=== PATIENT | male | born 1935 | race Caucasian/White ===

== ENCOUNTER 2016-09-08 12:02 | Inpatient (IN) | payer MEDICARE ==
--- NOTE | ~2016-09-08 | OP ---
Record Of Operation [facility] [address] [place]. [address] NAME: BRIAN RATLIFF : 36 STATUS : ADM IN PAT#: [id number] AGE: 80 ADM/REG DATE : 09/08/16 MR#: [id number] REPORT SERV DATE: 09/09/16 DICTATED BY: MEHRAN VARGAS DATE: 09/09/16 REPORT STATUS : Draft TRANSCRIBED BY: MODL DATE: 09/09/16 DATE OF PROCEDURE: 09/09/2016 CARDIAC CATHETERIZATION REPORT INDICATION FOR THIS PROCEDURE: Progressive angina and syncope. PROCEDURE IN DETAIL: The patient was prepped and draped in usual sterile fashion. Moderate IV sedation was administered. Adequate anesthesia was obtained over the right femoral vessels using lidocaine infiltration. Using the Seldinger technique, a 6-Bulgarian sheath was placed in the right femoral artery. A 6 FL4 coronary catheter was advanced in the left coronary ostium. Left coronary injections were performed in multiple views. Left groin catheter was then exchanged for a 6 FR4 coronary catheter which was used to inject the cachil dehe right coronary artery and the saphenous vein graft. Right coronary catheter was subsequently exchanged for a 6-Bulgarian multipurpose catheter which was used to perform additional saphenous vein graft injections. The multipurpose catheter was exchanged for a 6 Bulgarian pigtail catheter, which was advanced in the left ventricular cavity. Pressures were measured across the aortic valve and left ventricular angiogram was obtained in the ADAMS projection. The pigtail catheter was removed over a guidewire and sheath was left in place. There were no apparent complications. TOTAL CONTRAST USED: 105 mL. TOTAL RADIATION EXPOSURE: 396 mGy. ESTIMATED BLOOD LOSS: No significant blood loss occurred. RESULTS: 1. Pressures: The left ventricular end-diastolic pressure was 15 mmHg. No gradient was present across the aortic valve. 2. Left ventricular angiogram: The left ventricle contracted normally with estimated ejection fraction of 60%. 3. Coronary arteriograms: The left main coronary artery is normal. The left anterior descending coronary artery has a 70% mid vessel lesion. The left circumflex coronary artery has an 80% ostial lesion and there is a 95% proximal stenosis of the previously stented ramus intermedius branch. The right coronary artery is a dominant vessel and is totally occluded proximally. 4. Grafts: The previously stented saphenous vein graft to the right coronary artery is occluded. IMPRESSION: 1. Three-vessel coronary artery disease. 2. High-grade stenoses of ostium of the left circumflex coronary artery and proximal ramus intermedius branch. 3. Moderate disease in LAD. 4. Chronic total occlusion of right coronary artery which fills via septal collaterals Record Of Operation [facility] [facility] [id number] [place]. [address] NAME: BRIAN RATLIFF : 36 STATUS : ADM IN PAT#: [id number] AGE: 80 ADM/REG DATE : 09/08/16 MR#: [id number] REPORT SERV DATE: 09/09/16 DICTATED BY: MEHRAN VARGAS DATE: 09/09/16 REPORT STATUS : Draft TRANSCRIBED BY: RUBEN DATE: 09/09/16 from the LAD. PLAN: Staged angioplasty of the left circumflex coronary artery and ramus intermedius branch. ESVIN/RUBEN Mehran Vargas M.D., Neil / [id number] CC: Mehran Vargas M.D., ClarissaCVernon Martin M.D.
--- NOTE | ~2016-09-08 | DS ---
Discharge Summary [facility] [address] [place]. [address] NAME: BRIAN RATLIFF : 36 STATUS : DIS IN PAT#: [id number] AGE: 80 ADM/REG DATE : 09/08/16 MR#: [id number] REPORT SERV DATE: 09/20/16 DICTATED BY: MEHRAN VARGAS DATE: 09/19/16 REPORT STATUS : Draft TRANSCRIBED BY: RUBEN DATE: 09/19/16 Data Collection from hospitalization DISCHARGE DIAGNOSES: 1. Syncope. 2. Coronary artery disease, status post percutaneous coronary intervention to the left circumflex ramus intermedius. 3. Chest pain. 4. Shortness of breath. 5. Hypertension. 6. Anxiety disorder. CONSULTATIONS: None. PROCEDURES PERFORMED: 1. Cardiac catheterization on 09/09/2016. 2. PTCA on 09/11/2016. 3. Carotid blood flow study on 09/10/2016. MEDICATIONS: Xanax 1 mg twice a day and 1 mg as needed, Abilify 5 mg daily, aspirin 162 mg daily, vitamin B one tablet at bedtime, Coreg 6.25 mg twice a day, Cymbalta 60 mg twice a day, Proscar 5 mg daily, lecithin 400 mg at bedtime, Effient 10 mg daily, Lyrica 75 mg twice a day, Altace 5 mg daily, Restoril 30 mg at bedtime, and Bengay one application topically daily as needed. CONDITION AT DISCHARGE: Stable. DISPOSITION: The patient was discharged home on a low-sodium, low-cholesterol, cardiac diet with activities as instructed. He would follow up with me on 09/26/2016. HOSPITAL COURSE: This is a 80-year-old man who has a significant history of coronary artery disease, who had some been increasing dyspnea on exertion recently as well as intermittent chest discomfort. He had a nuclear stress test done the week prior to this admission, which was unremarkable and was actually coming back to my office for followup on the morning of this admission. He had a syncopal episode in our office after stepping off the scale. He had walked from the waiting room into the triage area and said the last thing he remembered was the nurse telling him his weight. After stepping off the scale, he began to fall and he was caught and placed in a wheelchair. He was very pale and regained consciousness quickly, but seemed a little disoriented. He was brought to the emergency department for further evaluation. He did have an episode of substernal chest pain here in the hospital, which radiated to his left arm. Currently, he was stable with no acute changes on his EKG and initial troponin was negative. He was admitted to the hospital for further evaluation and treatment. Upon admission, EKG showed sinus rhythm with nonspecific ST-T changes and borderline voltage for left ventricular hypertrophy, but was otherwise unremarkable. We would obtain serial cardiac enzymes. Home medications were continued. A carotid ultrasound was requested. We would consider possible cardiac catheterization to evaluate coronary anatomy due to Discharge Summary [facility] [id number] [facility] [place]. [address] NAME: BRIAN RATLIFF : 37 STATUS : DIS IN PAT#: [id number] AGE: 80 ADM/REG DATE : 09/08/16 MR#: [id number] REPORT SERV DATE: 09/20/16 DICTATED BY: MEHRAN VARGAS DATE: 09/19/16 REPORT STATUS : Draft TRANSCRIBED BY: RUBEN DATE: 09/19/16 worsening anginal symptoms despite negative nuclear scan. The following day, he was taken to the cardiac specialist employee labor relations where he underwent the above-mentioned procedure. He tolerated this well, and there were no complications. It was felt that the patient would need to undergo PTCA. On 09/10/2016, a carotid blood flow study was performed. He was in no distress. His lungs were clear. He had been found to have high-grade lesions of the left circumflex and ramus intermedius as well as moderate LAD lesions. On 09/11/2016, he was taken back to the cardiac specialist employee labor relations where he underwent the above-mentioned procedure. He tolerated this well, and there were no complications. Discharge planning was performed. On 09/12/2016, he has had an episode of chest pain during the night, but no discomfort. That morning, he reported that his shortness of breath was much improved since stenting. His lungs were clear. He had no edema. The cath site was clean, dry, and intact. Discharge instructions were given. Due to his improved and stable condition, he was discharged home with the above-stated instructions. Information collected by: Sarah Christie I submit the above information as my discharge summary. LASHAUN/MODL Mehran Vargas M.D., Neil / [id number] CC: Mehran Vargas M.D., Neil Martin M.D.
--- NOTE | ~2016-09-08 | OP ---
Record Of Operation [facility] [address] [place]. [address] NAME: BRIAN RATLIFF : 36 STATUS : ADM IN PAT#: [id number] AGE: 80 ADM/REG DATE : 09/08/16 MR#: [id number] REPORT SERV DATE: 09/11/16 DICTATED BY: MEHRAN VARGAS DATE: 09/11/16 REPORT STATUS : Draft TRANSCRIBED BY: MODL DATE: 09/11/16 DATE OF PROCEDURE: 09/11/2016 PTCA REPORT INDICATION FOR THIS PROCEDURE: Unstable angina with high-grade stenosis of ungrafted proximal left circumflex coronary artery and ramus intermedius branch. DESCRIPTION OF PROCEDURE: The patient was prepped and draped in the usual sterile fashion. Moderate IV sedation was administered. Adequate anesthesia was obtained over the right femoral vessels using lidocaine infiltration. Using the Seldinger technique, an 8-British sheath was placed in the right femoral artery. An 8 VL 3.5 coronary guiding catheter was advanced in the left coronary ostium. Left coronary artery injections confirmed the presence of an 80% ostial lesion of the left circumflex coronary artery and a 95% proximal stenosis of the previously stented ramus intermedius branch. A 0.014 Graphix guidewire was passed into the distal left circumflex coronary artery and a 0.014 Graphix guidewire was passed into the distal ramus branch. The ostium of the left circumflex coronary artery was then dilated with a 3.0/10 Cutting balloon at up to 15 atmospheres of pressure for 30 seconds in duration. The proximal ramus intermedius branch was then dilated with a 2.0/12 Emerge balloon at up to 15 atmospheres of pressure for 15 seconds in duration. A 3.0/16 Synergy stent was then deployed in the ostium of the left circumflex coronary artery at up to 18 atmospheres of pressure for 15 seconds in duration. A 0.014 Graphix guidewire was then passed through the stent struts in the proximal left circumflex coronary artery into the adjacent ramus intermedius branch. The ramus branch was again dilated through the stent strut using the 2.0/12 Emerge balloon at up to 18 atmospheres of pressure for 15 seconds in duration. A 2.25/12 Synergy stent was then deployed through the stent struts in the left circumflex coronary artery into the proximal ramus branch. The stent was inflated up to 15 atmospheres of pressure for 15 seconds in duration. Following removal of the balloon and guidewire, final left coronary artery injection showed 0% residual stenosis at the site of stent implantation with GALINDO grade 3 distal flow in both the ramus branch and the left circumflex coronary artery. The guiding catheter was removed. The sheath was left in place. No apparent complications. TOTAL CONTRAST USED: 150 mL. TOTAL RADIATION EXPOSURE: 511 mGy. ESTIMATED BLOOD LOSS: No significant blood loss occurred. IMPRESSION: 1. Successful Cutting balloon percutaneous transluminal coronary angioplasty and placement of drug-eluting stent in the ostium of left circumflex coronary artery. 2. Successful percutaneous transluminal coronary angioplasty and placement of drug-eluting stent in the proximal ramus intermedius branch. Record Of [address] [address] NAME: BRIAN RATLIFF : 36 STATUS : ADM IN [facility]#: [id number] AGE: 80 ADM/REG DATE : 09/08/16 MR#: [id number] REPORT SERV DATE: 09/11/16 DICTATED BY: MEHRAN VARGAS DATE: 09/11/16 REPORT STATUS : Draft TRANSCRIBED BY: RUBEN DATE: 09/11/16 ESVIN/RUBEN Mehran Vargas M.D., Neil / [id number] CC: Mehran Vargas M.D., Niel Martin M.D.
--- NOTE | ~2016-09-08 | HP ---
History And Physical [place] [address] [facility] [place]. [address] NAME: BRIAN RATLIFF : 37 STATUS : ADM IN [facility]#: [id number] AGE: 80 ADM/REG DATE : 09/08/16 MR#: [id number] REPORT SERV DATE: 09/08/16 DICTATED BY: JOCELIN HO DATE: 09/08/16 REPORT STATUS : Draft TRANSCRIBED BY: MODL DATE: 09/08/16 DATE OF ADMISSION: 09/08/2016 HISTORY OF PRESENT ILLNESS: The patient is a pleasant 80-year-old white male with a significant history of coronary artery disease, who has had some increasing dyspnea on exertion recently as well as intermittent chest discomfort. He had a nuclear stress test done last week, which was unremarkable and was actually coming back to my office for followup this morning. He had a syncopal episode in our office just after stepping off the scales. He had walked from the waiting room into the triage area and states that the last thing he remembers was the nurse telling him his weight. The patient's and my MA report that after stepping off the scales, he began falling and they caught him and placed him in a wheelchair. He was very pale and regained consciousness quickly, but seemed a little disoriented. He was brought to the emergency department for further evaluation. The patient did have an episode of substernal chest pain here in the hospital this afternoon, which radiated to his left arm. Currently, he is stable with no acute changes on his EKG and initial troponin was negative. PAST MEDICAL HISTORY: Significant for coronary artery disease status post remote bypass surgery and subsequent stenting as well as essential hypertension, COPD, and anxiety disorder. The patient's last cardiac catheterization was done on 06/20/2013, which showed a patent pre-existing stent in the proximal to mid ramus intermedius branch with a 30% ostial lesion and proximal to this stent. There was also a patent stented segment of the saphenous vein graft to the posterior descending artery. The LAD had luminal irregularities, but no obstructive disease. The left ventricular ejection fraction was 60% at that time, and the right and left renal arteries were patent as well. SOCIAL HISTORY: The patient is . He does not smoke. He is currently grieving the of his son, who within the last two weeks. FAMILY HISTORY: Noncontributory. REVIEW OF SYSTEMS: The patient denies nausea, vomiting, diarrhea, or dysuria. He complains of worsening dyspnea on exertion as well as intermittent chest pain, although the pain does not seem to be necessarily exertional. He describes some fairly focal chest pain in the left lower anterior chest. This is worse when he bends over to tie his shoes. However, he also has some substernal chest pressure and pain that radiates across his chest and sometimes to the left arm that feels more similar to his previous angina. The patient complains of fatigue and frequent lightheadedness upon standing, but this is his first actual syncopal episode. He denies any recent fever, chills, cough, wheeze, or sputum production. PHYSICAL EXAMINATION: VITAL SIGNS: Blood pressure is 154/72, heart rate 68 and regular, respirations 14 and unlabored. The patient is afebrile. GENERAL APPEARANCE: The patient is a well-developed and well-nourished white male, in no distress. History And Physical [address] [address] NAME: BRIAN RATLIFF : 37 STATUS : ADM IN [facility]#: [id number] AGE: 80 ADM/REG DATE : 09/08/16 MR#: [id number] REPORT SERV DATE: 09/08/16 DICTATED BY: JOCELIN HO DATE: 09/08/16 REPORT STATUS : Draft TRANSCRIBED BY: RUBEN DATE: 09/08/16 HEENT: Unremarkable. NECK: Shows no jugular venous distention with good carotid upstroke. CHEST: Clear to auscultation bilaterally. CARDIOVASCULAR: PMI is nondisplaced. S1 is normal. S2 is narrowly split. No gallop is present. ABDOMEN: Soft and nontender with normal bowel sounds. EXTREMITIES: Showed no cyanosis, clubbing, or edema. SKIN: Warm and dry with no pallor or icterus. NEURO/PSYCH: The patient is alert and oriented x3 with appropriate affect. LABORATORY AND DIAGNOSTIC DATA: EKG shows sinus rhythm with nonspecific ST-T changes and borderline voltage for LVH, but is otherwise unremarkable. Chest x-ray showed no acute process. Chemistry profile shows a sodium of 142, potassium 4.7, BUN 18, creatinine 1.2, magnesium 2.4. Troponin was negative at less than 0.02. CBC was unremarkable with a white count of 8.9, hemoglobin 14.3, hematocrit 42.3, and platelet count 166. Nuclear stress test done three days ago on 09/05/2016 showed no reversible ischemia. There was some inferior wall thinning and hypokinesis consistent with partial-thickness scar. The left ventricular ejection fraction was 60%. IMPRESSION: 1. Syncope. 2. Chest pain and dyspnea on exertion that are concerning for possible progressive angina despite recent negative nuclear scan. 3. Coronary artery disease. 4. Essential hypertension. 5. Grief related to recent loss of a child. 6. Fibromyalgia syndrome. 7. History of anxiety disorder. PLAN: 1. We will admit the patient for observation and do serial cardiac enzymes. Continue home medications at this time. 2. Check carotid ultrasound in the morning. 3. Consider possible cardiac catheterization to evaluate coronary anatomy due to worsening anginal symptoms, despite negative nuclear scan. EBB/MODL Jocelin Ho NP / [id number] CC: Mehran Vargas M.D., F.A.C.C. History And Physical [address] [address] NAME: BRIAN RATLFIF : 37 STATUS : ADM IN [facility]#: [id number] AGE: 80 ADM/REG DATE : 09/08/16 MR#: [id number] REPORT SERV DATE: 09/08/16 DICTATED BY: JOCELIN HO DATE: 09/08/16 REPORT STATUS : Draft TRANSCRIBED BY: MODL DATE: 09/08/16 Emir Martin M.D.
[2016-09-08 11:31] LABS: CALCIUM, SERUM 8.6 MG/DL (8.5-10.4); CHLORIDE, SERUM 111 MMOL/L (96-112); CO2 (CARBON DIOXIDE) 24 MMOL/L (24-34); GFR AFRICAN AMERICAN 66 ML/MIN (>=60); GFR NON AFRICAN AMERICAN 57 ML/MIN (>=60); SODIUM, SERUM 142 MMOL/L (135-148); TROPONIN I <0.02 NG/ML (<0.05)
[2016-09-08 11:32] LABS: BUN (BLOOD UREA NITROGEN) 18 MG/DL (6-23); GLUCOSE, SERUM 123 MG/DL (60-99); POTASSIUM, SERUM 4.7 MMOL/L (3.5-5.3)
[~2016-09-08 12:02] MED LIST: ABILIFY15 PO; ALTA2.5 PO; COREG3 PO; CYMBALTA60 PO; EFFIENT10 PO; FLONASE NAS; HALF81 PO; LIPITOR20 PO; RESTORIL30 MG PO; XANAX1 MG PO; ZESTORETIC1 TAB PO
[2016-09-08 12:50] LABS: BASOPHILS 0.2 %; BASOPHILS ABSOLUTE 0.02 10/3/uL (0.0-0.16); EOSINOPHILS ABSOLUTE 0.18 10/3/uL (0.0-0.53); ER CBC TAT 0 Hrs 03 Mins; HEMATOCRIT 42.3 % (40.0-51.0); HEMOGLOBIN 14.3 g/dL (13.6-17.8); IMMATURE GRANULOCYTES 0.2 %; IMMATURE GRANULOCYTES ABSOLUTE 0.02 10/3/uL (0.0-0.11); LYMPHOCYTES 29.4 %; LYMPHOCYTES ABSOLUTE 2.62 10/3/uL (0.67-4.30); MEAN CORPUS HGB CONC 33.8 g/dL (32.0-36.0); MEAN CORPUSCULAR HEMOGLOB 31.2 pg (26.0-34.0); MEAN PLATELET VOLUME 10.5 fL (9.2-13.0); MONOCYTES 8.7 %; MONOCYTES ABSOLUTE 0.77 10/3/uL (0.21-1.20); NEUTROPHILS 59.5 %; NEUTROPHILS ABSOLUTE 5.29 10/3/uL (2.02-8.40); PLATELET COUNT 166 10/3/uL (150-400); RBC DISTRIBUTION WIDTH 14.5 % (12.0-16.0); RED CELL COUNT 4.58 10/6/uL (4.7-6.1); WHITE BLOOD CELLS 8.9 10/3/uL (4.5-10.5)
[2016-09-08 12:51] LABS: MANUAL DIFF NO %; MEAN CORPUSCULAR VOLUME 92.4 fL (80-100)
[2016-09-08 13:01] LABS: INTERNATIONAL NORMAL RATI 1.2 UNITS (-); PARTIAL THROMBO TIME 27.2 SEC (22.5-37.2); PROTIME (NOT ORD) 15.1 SEC (12.0-14.5)
[2016-09-08] MEDS ORDERED: RESTORIL30 MG PO (14:09)
[2016-09-08] MEDS ORDERED: COREG6 PO (14:09)
[2016-09-08] MEDS ORDERED: ABILIFY5 PO (14:10)
[2016-09-08] MEDS ORDERED: CYMBALTA60 PO (14:10)
[2016-09-08] MEDS ORDERED: EFFIENT10 PO (14:11)
[2016-09-08] MEDS ORDERED: XANAX1 MG PO ×2 (14:11)
[2016-09-08] MEDS ORDERED: ASAB PO (14:12)
[2016-09-08] MEDS ORDERED: ALTA5 PO (14:12)
[2016-09-08] MEDS ORDERED: VITAMIN B PO (14:13)
[2016-09-08] MEDS ORDERED: PROSCAR5 PO (14:13)
[2016-09-08] MEDS ORDERED: LYRICA75 PO (14:13)
[2016-09-08] MEDS ORDERED: LECITHIN518 MG PO (14:14)
[2016-09-08] MEDS ORDERED: BENGAY TOP (14:15)
[2016-09-08 18:51] LABS: HEMATOCRIT 40.4 % (40.0-51.0); HEMOGLOBIN 13.7 g/dL (13.6-17.8); MEAN CORPUS HGB CONC 33.9 g/dL (32.0-36.0); MEAN CORPUSCULAR HEMOGLOB 31.5 pg (26.0-34.0); MEAN CORPUSCULAR VOLUME 92.9 fL (80-100); MEAN PLATELET VOLUME 10.4 fL (9.2-13.0); PLATELET COUNT 151 10/3/uL (150-400); RBC DISTRIBUTION WIDTH 14.4 % (12.0-16.0); RED CELL COUNT 4.35 10/6/uL (4.7-6.1); WHITE BLOOD CELLS 7.1 10/3/uL (4.5-10.5)
[2016-09-08 18:52] LABS: MANUAL DIFF YES %
[2016-09-08 19:15] LABS: BASOPHILS 2 %; BASOPHILS ABSOLUTE (CALC) 0.14 10/3/uL (0.0-0.16); EOSINOPHILS 2 %; EOSINOPHILS ABSOLUTE (CALC) 0.14 10/3/uL (0.0-0.53); LYMPHOCYTES 24 %; MONOCYTES 4 %; MONOCYTES ABSOLUTE (CALC) 0.28 10/3/uL (0.21-1.20); NEUTROPHILS ABSOLUTE (CALC) 4.83 10/3/uL (2.02-8.40); PLATELET ESTIMATE ADQ (ADEQUATE); SEGMENTED NEUTROPHIL (0) 68 %; TOTAL NUCLEATED CELLS 100
[2016-09-08 19:16] LABS: GIANT PLATELET RARE
[2016-09-08 20:17] LABS: CK-MB 2.7 NG/ML; CPK 220 U/L (0-200)
[2016-09-09 01:20] LABS: CK-MB 1.5 NG/ML; CPK 138 U/L (0-200)
[2016-09-09 04:56] LABS: BUN (BLOOD UREA NITROGEN) 15 MG/DL (6-23); CALCIUM, SERUM 7.9 MG/DL (8.5-10.4); CHLORIDE, SERUM 111 MMOL/L (96-112); CO2 (CARBON DIOXIDE) 26 MMOL/L (24-34); CREATININE 1.02 MG/DL (0.70-1.30); GFR AFRICAN AMERICAN 81 ML/MIN (>=60); GFR NON AFRICAN AMERICAN 70 ML/MIN (>=60); GLUCOSE, SERUM 108 MG/DL (60-99); SODIUM, SERUM 145 MMOL/L (135-148)
[2016-09-09 09:24] LABS: TROPONIN I <0.02 NG/ML (<0.05)
[2016-09-09 10:28] LABS: CHOL/HDL RATIO(NOT ORDER) 4.5 (0-5); CHOLESTEROL 190 MG/DL (< 200); HDL CHOLESTEROL 42 MG/DL (> 39); LDL CHOLESTEROL 107 MG/DL (< 130); NON-HDL CHOLESTEROL 148 MG/DL (< 160)
[2016-09-09 10:32] LABS: TRIGLYCERIDE 208 MG/DL (< 150)
[2016-09-09 10:52] LABS: INTERNATIONAL NORMAL RATI 1.1 UNITS (-); PROTIME (NOT ORD) 13.7 SEC (12.0-14.5)
[2016-09-11 04:19] LABS: HEMATOCRIT 41.8 % (40.0-51.0); HEMOGLOBIN 14.2 g/dL (13.6-17.8); MEAN CORPUSCULAR HEMOGLOB 31.2 pg (26.0-34.0); MEAN CORPUSCULAR VOLUME 91.9 fL (80-100); MEAN PLATELET VOLUME 10.8 fL (9.2-13.0); PLATELET COUNT 130 10/3/uL (150-400); RBC DISTRIBUTION WIDTH 14.2 % (12.0-16.0); RED CELL COUNT 4.55 10/6/uL (4.7-6.1); WHITE BLOOD CELLS 7.8 10/3/uL (4.5-10.5)
[2016-09-11 04:20] LABS: MANUAL DIFF YES %
[2016-09-11 04:28] LABS: INTERNATIONAL NORMAL RATI 1.1 UNITS (-); PROTIME (NOT ORD) 13.8 SEC (12.0-14.5)
[2016-09-11 04:43] LABS: BUN (BLOOD UREA NITROGEN) 14 MG/DL (6-23); CALCIUM, SERUM 8.6 MG/DL (8.5-10.4); CHLORIDE, SERUM 108 MMOL/L (96-112); CHOL/HDL RATIO(NOT ORDER) 3.9 (0-5); CHOLESTEROL 154 MG/DL (< 200); CO2 (CARBON DIOXIDE) 23 MMOL/L (24-34); CREATININE 0.97 MG/DL (0.70-1.30); GFR AFRICAN AMERICAN 86 ML/MIN (>=60); GFR NON AFRICAN AMERICAN 74 ML/MIN (>=60); GLUCOSE, SERUM 128 MG/DL (60-99); HDL CHOLESTEROL 39 MG/DL (> 39); LDL CHOLESTEROL 88 MG/DL (< 130); NON-HDL CHOLESTEROL 115 MG/DL (< 160); POTASSIUM, SERUM 3.8 MMOL/L (3.5-5.3); SODIUM, SERUM 142 MMOL/L (135-148)
[2016-09-11 04:46] LABS: TRIGLYCERIDE 136 MG/DL (< 150)
[2016-09-11 05:10] LABS: EOSINOPHILS 8 %; EOSINOPHILS ABSOLUTE (CALC) 0.62 10/3/uL (0.0-0.53); LYMPHOCYTES 37 %; LYMPHOCYTES ABSOLUTE (CALC) 2.89 10/3/uL (0.67-4.30); MONOCYTES 10 %; MONOCYTES ABSOLUTE (CALC) 0.78 10/3/uL (0.21-1.20); NEUTROPHILS ABSOLUTE (CALC) 3.51 10/3/uL (2.02-8.40); PLATELET ESTIMATE SLT DEC (ADEQUATE); RBC MORPHOLOGY NORM (NORMAL); SEGMENTED NEUTROPHIL (0) 45 %; TOTAL NUCLEATED CELLS 100
[2016-09-11 18:56] LABS: CK-MB 1.4 NG/ML; CPK 148 U/L (0-200)
[2016-09-12 01:49] LABS: CK-MB 1.7 NG/ML; CPK 129 U/L (0-200)
[2016-09-12 01:50] LABS: TROPONIN I 0.21 NG/ML (<0.05)
== END 2016-09-12 11:50 | disposition home or self-care (01) | DRG 247 ==
LOC: ER 12:02 → 7NO 15:00 → SSU1 09-11 17:38
PROVIDERS: Emergency Medicine; Internal Medicine Interventional Cardiology; Nurse Practitioner Family
PROC: 4A023N7 Measurement of Cardiac Sampling and Pressure, Left Heart, Percutaneous Approach (ICD-10-PCS; 2016-09-09)
PROC: B2151ZZ Fluoroscopy of Left Heart using Low Osmolar Contrast (ICD-10-PCS; 2016-09-09)
PROC: B2111ZZ Fluoroscopy of Multiple Coronary Arteries using Low Osmolar Contrast (ICD-10-PCS; 2016-09-09)
PROC: B2131ZZ Fluoroscopy of Multiple Coronary Artery Bypass Grafts using Low Osmolar Contrast (ICD-10-PCS; 2016-09-09)
PROC: 027135Z Dilation of Coronary Artery, Two Arteries with Two Drug-eluting Intraluminal Devices, Percutaneous Approach (ICD-10-PCS; principal; 2016-09-11)
DX: I25.710 Atherosclerosis of autologous vein coronary artery bypass graft(s) with unstable angina pectoris (principal); J44.9 Chronic obstructive pulmonary disease, unspecified; I25.110 Atherosclerotic heart disease of native coronary artery with unstable angina pectoris; I10 Essential (primary) hypertension; F41.9 Anxiety disorder, unspecified; K21.9 Gastro-esophageal reflux disease without esophagitis; G47.33 Obstructive sleep apnea (adult) (pediatric); F43.20 Adjustment disorder, unspecified; M79.7 Fibromyalgia; E78.00 Pure hypercholesterolemia, unspecified; R55 Syncope and collapse; Z88.0 Allergy status to penicillin; Z95.1 Presence of aortocoronary bypass graft; Z95.5 Presence of coronary angioplasty implant and graft; Z86.73 Personal history of transient ischemic attack (TIA), and cerebral infarction without residual deficits
CPT/HCPCS: 71010; 80048; 80061; 82550; 82553; 83735; 84484; 85025; 85610; 85730; 93005; 93459; 93880; 99152; 99153; 99285; A9270-GY; C1725; C1769; C1874; C1887; C1894; C9600; J0583; J2250; J2405; J3010; Q9967